=== PATIENT | female | born 1960 | race Caucasian/White ===

== ENCOUNTER 2021-02-10 23:44 | Emergency (ER) | payer MEDICAID, OTHER ==
[~2021-02-10] VITALS: Ht 152.4 cm; Wt 76.2 kg
[~2021-02-10 23:44] MED LIST: AMLO10TA1 PO; AMLO10TA89 PO; BACL20TA4 PO; BENZ0.5T85 PO; DIVA250T PO; ESOM40EC PO; LEVA0.043 IH; LEVO0.1T19 PO; PROM25TA85 PO; QUET100T PO; TRAM50TA3 PO; TRAZ-471 PO; VIC PO; [UNRECOGNIZED DRUG - CODE] PO
[2021-02-10 23:55] VITALS: BP 145/89
--- NOTE | 2021-02-11 00:03 | NUR ---
PT TAKEN TO BED 4
[2021-02-11] MEDS ORDERED: KETOROLAC 60 MG/2 ML VIAL IM ONE (00:05)
--- NOTE | 2021-02-11 00:11 | NUR ---
X-Ray at bedside.
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
--- NOTE | 2021-02-11 01:27 | NUR ---
Dr. Wong examining patient.
[2021-02-11] MEDS ORDERED: ACET-8386 PO (01:36)
[2021-02-11] MEDS ORDERED: IBUP-2213 PO (01:36)
--- NOTE | 2021-02-11 02:15 | NUR ---
PT GIVEN FOOD AND FLUIDS AT THIS TIME.
--- NOTE | 2021-02-11 02:20 | NUR ---
Patient discharged with v/s stable. Written and verbal after care instructions given and explained. Patient alert, oriented and verbalized understanding of instructions. Ambulatory with steady gait. All questions addressed prior to discharge. ID band removed. Patient advised to follow up with PMD. Rx of NORCO AND MOTRIN given. Patient educated on indication of medication including possible reaction and side effects. Opportunity to ask questions provided and answered.
== END 2021-02-11 02:20 | disposition home or self-care (01) ==
LOC: MED 23:44
DX: M25.511 Pain in right shoulder (principal); J45.909 Unspecified asthma, uncomplicated; K21.9 Gastro-esophageal reflux disease without esophagitis; I10 Essential (primary) hypertension; E03.9 Hypothyroidism, unspecified; Z90.49 Acquired absence of other specified parts of digestive tract; Z98.890 Other specified postprocedural states; Z79.899 Other long term (current) drug therapy
CPT/HCPCS: 73030; 96372; 99283; J1885